=== PATIENT | female | born 1995 | race American Indian/Alaskan Native ===

== ENCOUNTER 2022-09-02 20:46 | Emergency (ER) | payer OTHER, SELFPAY ==
[2022-09-02] VITALS (7 sets, daily range): BP systolic 109–116; BP diastolic 56–68; PULSE 86–99; RESP 18–20; TEMP 36.3; O2SAT 96–97; BMI 28.3
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
[2022-09-02 21:16] LABS: Pregnancy Test Serum,Qual Negative (Negative)
[2022-09-02] MEDS: KETOROLAC 30 MG/ML VIAL 15 MG IV (21:20)
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
== END 2022-09-02 22:49 | disposition home or self-care (01) ==
PROVIDERS: Emergency Provider Emergency Medicine; PCP Physician Assistant
DX: S16.1XXA Strain of muscle, fascia and tendon at neck level, initial encounter (principal); V89.2XXA Person injured in unspecified motor-vehicle accident, traffic, initial encounter
CPT/HCPCS: 70450; 71045; 72125; 72170; 84703; 96374; 99284; J1885

== ENCOUNTER → 2023-03-27 12:23 | Outpatient (CLI) | payer OTHER, SELFPAY ==
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
== END ==
PROVIDERS: PCP Physician Assistant; Referring Provider Obstetrics & Gynecology; Visit Provider Obstetrics & Gynecology
DX: O26.891 Other specified pregnancy related conditions, first trimester (principal); R10.9 Unspecified abdominal pain; R11.0 Nausea; Z3A.01 Less than 8 weeks gestation of pregnancy; Z87.59 Personal history of other complications of pregnancy, childbirth and the puerperium
CPT/HCPCS: 76801; 76817

== ENCOUNTER 2023-03-28 13:38 | Emergency (ER) | payer OTHER, SELFPAY ==
[2023-03-28 13:40] VITALS: BP 104/65; PULSE 76; RESP 15; TEMP 36.6; O2SAT 100; BMI 27.4
[2023-03-28] MEDS: ONDANSETRON 4 MG ODT SL (13:50)
--- NOTE | 2023-03-28 14:38 | ED_ITS ---
HPI - Nausea/Vomiting/Diarrhea <THANH Head - Last Filed: 03/28/23 16:30> General Chief complaint: Nausea/Vomiting/Diarrhea Stated complaint: SENT BY [facility]OMITING Time Seen by Provider: 03/28/23 14:28 Source: patient Mode of arrival: Ambulatory History of Present Illness HPI Narrative: This is a 27-year-old female returns to the emergency department after being seen yesterday with pelvic ultrasound showing 7 week 6 day gestation . She returns for nausea and vomiting and states she has not been able to keep anything down. She states that she has generalized abdominal pain. States that she is a history of ectopic last year, and history of miscarriage in her 1st requiring D&C. She states that she still feels poorly has been since yesterday. States the ultrasound she had her shows that the baby's healthy and normal. She denies history of appendectomy or cholecystectomy. States that she has epigastric pain and primarily generalized lower abdominal discomfort. Endorses having vaginal discharge. Denies any bleeding or pelvic cramping. Patient has bilateral ovaries appear normal, heart rate was 162 beats per minute. Patient reports that she just moved here from [place] and does not have OBGYN lined up, states that she came here to the [facility] to hopefully get this lined up. Related Data Previous Rx's Medication Instructions Recorded ondansetron 4 mg disintegrating 4 mg PO Q8H PRN nausea and 03/28/23 tablet vomiting #14 tabs promethazine 12.5 mg tablet 12.5 mg PO TID PRN nausea/vomiting 03/28/23 #14 tabs Allergies Allergy/AdvReac Type Severity Reaction Status Date / Time No Known Drug Allergies Allergy Verified 03/28/23 13:40 Review of Systems <THANH Head - Last Filed: 03/28/23 16:30> Review of Systems ROS Unobtainable: All systems reviewed & are unremarkable except as noted in HPI and below Patient History <THANH Head - Last Filed: 03/28/23 16:30> Social History Smoking Status: Never smoker Smoking Status: Never smoker alcohol intake frequency: holidays/special occasions only Substance Use Type: does not use Exam <THANH Head - Last Filed: 03/28/23 16:30> Narrative Exam Narrative: Reviewed vitals signs and nursing notes. General: Pleasant, sitting upright, appears to be feeling poorly, in no acute distress, well groomed, afebrile HEENT: symmetrical facial expressions, moist mucous membranes, neck is supple CV: regular rate and rhythm, warm extremities Respiratory: normal work of breathing, without tachypnea or hypoxia. GI: abdomen soft, nondistended, without CVA tenderness bilaterally, tenderness to the lower quadrants over the left and right ovary and her bladder MSK: moves all extremities, no weakness, normal tone, ambulatory without deficit Skin: brisk capillary refill, without rash or wound Neuro: clear speech and normal cognition, A&O x3, GCS 15, no focal motor or sensation deficits Initial Vital Signs Initial Vital Signs: Vital Signs Temperature 97.9 F 03/28/23 13:40 Pulse Rate 76 03/28/23 13:40 Respiratory Rate 15 03/28/23 13:40 Blood Pressure 104/65 03/28/23 13:40 Pulse Oximetry 100 03/28/23 13:40 Oxygen Delivery Method Room Air 03/28/23 13:40 <Mehdi Hodge MD - Last Filed: 04/02/23 08:43> Initial Vital Signs Initial Vital Signs: Vital Signs Temperature 97.9 F 03/28/23 13:40 Pulse Rate 76 03/28/23 13:40 Respiratory Rate 15 03/28/23 13:40 Blood Pressure 104/65 03/28/23 13:40 Pulse Oximetry 100 03/28/23 13:40 Oxygen Delivery Method Room Air 03/28/23 13:40 Course <THANH Head - Last Filed: 03/28/23 16:30> Orders Ordered: Discontinued Medications Diphenhydramine HCl (Diphenhydramine 50 Mg/Ml Vial) 25 mg IV NOW ONE Stop: 03/28/23 15:45 Last Admin: 03/28/23 16:34 Dose: Not Given Documented By: LORI Sodium Chloride (Normal Saline 0.9%) 1,000 mls @ 1,000 mls/hr IV BOLUS ONE Stop: 03/28/23 15:38 Last Infusion: 03/28/23 16:00 Dose: 0 mls/hr Documented By: Admin: 03/28/23 15:01 Dose: 1,000 mls/hr Documented By: ADILENE Ondansetron HCl (Ondansetron 4 Mg Odt) 4 mg SL NOW PRN PRN Reason: Nausea And Vomiting Last Admin: 03/28/23 13:50 Dose: 4 mg Documented By: OPAL Ondansetron HCl (Ondansetron 4 Mg/2 Ml Inj) 4 mg IV NOW ONE Stop: 03/28/23 14:40 Last Admin: 03/28/23 15:01 Dose: 4 mg Documented By: ADILENE Promethazine HCl (Promethazine 25 Mg Tablet) 25 mg PO NOW ONE Stop: 03/28/23 16:16 Last Admin: 03/28/23 16:25 Dose: 25 mg Documented By: ADILENE Pyridoxine HCl (Pyridoxine 100 Mg/Ml Vial) 100 mg IV NOW ONE Stop: 03/28/23 15:45 Last Admin: 03/28/23 16:34 Dose: Not Given Documented By: LORI Vital Signs Vital signs: Vital Signs - 8 hr 03/28/23 13:40 Temperature 97.9 F Pulse Rate 76 Respiratory Rate 15 Blood Pressure 104/65 Pulse Oximetry 100 Oxygen Delivery Method Room Air <Mehdi Hodge MD - Last Filed: 04/02/23 08:43> Orders Ordered: Discontinued Medications Diphenhydramine HCl (Diphenhydramine 50 Mg/Ml Vial) 25 mg IV NOW ONE Stop: 03/28/23 15:45 Last Admin: 03/28/23 16:34 Dose: Not Given Documented By: LORI Sodium Chloride (Normal Saline 0.9%) 1,000 mls @ 1,000 mls/hr IV BOLUS ONE Stop: 03/28/23 15:38 Last Infusion: 03/28/23 16:00 Dose: 0 mls/hr Documented By: Admin: 03/28/23 15:01 Dose: 1,000 mls/hr Documented By: ADILENE Ondansetron HCl (Ondansetron 4 Mg Odt) 4 mg SL NOW PRN PRN Reason: Nausea And Vomiting Last Admin: 03/28/23 13:50 Dose: 4 mg Documented By: OPAL Ondansetron HCl (Ondansetron 4 Mg/2 Ml Inj) 4 mg IV NOW ONE Stop: 03/28/23 14:40 Last Admin: 03/28/23 15:01 Dose: 4 mg Documented By: SPF Promethazine HCl (Promethazine 25 Mg Tablet) 25 mg PO NOW ONE Stop: 03/28/23 16:16 Last Admin: 03/28/23 16:25 Dose: 25 mg Documented By: ADILENE Pyridoxine HCl (Pyridoxine 100 Mg/Ml Vial) 100 mg IV NOW ONE Stop: 03/28/23 15:45 Last Admin: 03/28/23 16:34 Dose: Not Given Documented By: LORI Vital Signs Vital signs: Vital Signs - 8 hr 03/28/23 13:40 Temperature 97.9 F Pulse Rate 76 Respiratory Rate 15 Blood Pressure 104/65 Pulse Oximetry 100 Oxygen Delivery Method Room Air MDM - Nausea/Vomiting/Diarrhea <THANH Head - Last Filed: 03/28/23 16:30> Lab Data 03/28/23 14:56 03/28/23 14:56 Labs: Lab Results 03/28/23 03/28/23 03/28/23 Range/Units 14:56 14:56 14:56 WBC 7.7 (4.5-11.0) X10^3/uL RBC 4.06 (4.0-5.2) X10^6/uL Hgb 13.0 (12.0-16.0) g/dL Hct 37.1 (36-46) % MCV 91.5 (80-100) fL MCH 32.1 (26-34) PG MCHC 35.1 (30-36) % RDW 13.5 (11.6-14.8) % Plt Count 288 (150-400) X10^3/uL Neut % (Auto) 77.8 H (50-75) % Lymph % (Auto) 14.6 L (25-40) % Lamb % (Auto) 6.2 (3-14) % Eos % (Auto) 0.8 L (2-4) % Baso % (Auto) 0.6 (0-2) % Neut # (Auto) 6000 (7064-5088) /uL Lymph # (Auto) 1100 (5001-5260) /uL Lamb # (Auto) 500 (0-900) /uL Eos # (Auto) 100 (0-450) /uL Baso # (Auto) 0 (0-100) /uL Sodium 135 L (137-145) mmol/L Potassium 3.6 (3.4-5.1) mmol/L Chloride 103 (98-107) mmol/L Carbon Dioxide 26 (22-32) mmol/L BUN 6 L (7-17) mg/dL Creatinine 0.53 (0.52-1.04) mg/dL Estimated GFR > 60 (>60) mL/min BUN/Creatinine Ratio 11.3 (6-22) Glucose 84 (70-100) mg/dL Calcium 9.2 (8.4-10.2) mg/dL Magnesium 1.8 (1.6-2.3) mg/dL Total Bilirubin 0.5 (0.2-1.3) mg/dL AST 25 (14-36) IU/L ALT 27 (<35) IU/L Alkaline Phosphatase 58 (38-126) U/L Total Protein 7.9 (6.3-8.2) g/dL Albumin 4.4 (3.5-5.0) g/dL Globulin 3.5 (1.7-4.1) g/dL Albumin/Globulin Ratio 1.3 (1.0-2.8) Lipase 57 (23-300) U/L HCG, Quant [id number] mIU/mL Urine Dip Bedside Urine Glucose Negative Bedside Urine Bilirubin - Negative Bedside Urine Ketone +/- 5 Urine Specific Deaver 1.015 Bedside Urine Occult Blood - Negative Bedside Urine pH 8.0 Bedside Urine Protein - Negative Bedside Urine Urobilinogen - Negative Bedside Urine Nitrite - Negative Bedside Urine Leukocytes - Negative Esterase MDM Narrative Medical decision making narrative: Chief Complaint: Nausea vomiting Primary historian: Multiple etiologies for patient's complaint considered including, but not limited to: Acute viral illness/gastroenteritis, hyperemesis affecting , dehydration, electrolyte abnormality, bacterial vaginitis, cholecystitis, cholelithiasis, gastritis, appendicitis, I have independently reviewed the patient's vital signs and nursing notes as well as prior records if available. My interpretation of imaging: OB Ultrasound from yesterday showed a healthy viable 7 week 4 day intrauterine gestation. My interpretation of lab studies: Urine dip with a trace of ketones, wet mount is negative for WBCs, clue cells, or Trichomonas., no leukocytosis or anemia, no significant electrolyte abnormalities After patient's IV Zofran she reports still feeling nauseated. Will treat with vitamin B6 and diphenhydramine. Labs are pending Patient's lab work overall is unremarkable, no elevated liver enzymes, pharmacy called and said that the hospital does not have vitamin B6. Decided to hold Benadryl and discuss risks and benefits of treating with promethazine, this was ordered for the patient as she states she is had this in the past for her previous episodes of nausea and vomiting during . Patient is instructed to follow-up with OBGYN since she does not have one, she was referred to Dr. Yao who is on-call today for OBGYN and understands to call make an appointment for follow-up. I have given her a prescription of Zofran and for promethazine to use as needed if the Zofran does not help. She understands to hydrate after using this medication. She is not had a fever, tachycardia, flank pain, abnormal UA or other signs of infection today. Course of care: Patient was given promethazine, she will follow-up with Dr. Yao and was given strict return precautions. Social considerations that may affect disposition: none Questions are addressed and there is agreement with the plan and for follow-up. I consulted with the ED attending physician Dr. Hodge as needed for higher level of care considerations and they were available for discussion and recommendations regarding plan of care and diagnostic testing. Patient is appropriate for outpatient management. <Mehdi Hodge MD - Last Filed: 04/02/23 08:43> Lab Data Labs: Lab Results 03/28/23 03/28/23 03/28/23 Range/Units 14:56 14:56 14:56 WBC 7.7 (4.5-11.0) X10^3/uL RBC 4.06 (4.0-5.2) X10^6/uL Hgb 13.0 (12.0-16.0) g/dL Hct 37.1 (36-46) % MCV 91.5 (80-100) fL MCH 32.1 (26-34) PG MCHC 35.1 (30-36) % RDW 13.5 (11.6-14.8) % Plt Count 288 (150-400) X10^3/uL Neut % (Auto) 77.8 H (50-75) % Lymph % (Auto) 14.6 L (25-40) % Lamb % (Auto) 6.2 (3-14) % Eos % (Auto) 0.8 L (2-4) % Baso % (Auto) 0.6 (0-2) % Neut # (Auto) 6000 (5133-1449) /uL Lymph # (Auto) 1100 (8798-9692) /uL Lamb # (Auto) 500 (0-900) /uL Eos # (Auto) 100 (0-450) /uL Baso # (Auto) 0 (0-100) /uL Sodium 135 L (137-145) mmol/L Potassium 3.6 (3.4-5.1) mmol/L Chloride 103 (98-107) mmol/L Carbon Dioxide 26 (22-32) mmol/L BUN 6 L (7-17) mg/dL Creatinine 0.53 (0.52-1.04) mg/dL Estimated GFR > 60 (>60) mL/min BUN/Creatinine Ratio 11.3 (6-22) Glucose 84 (70-100) mg/dL Calcium 9.2 (8.4-10.2) mg/dL Magnesium 1.8 (1.6-2.3) mg/dL Total Bilirubin 0.5 (0.2-1.3) mg/dL AST 25 (14-36) IU/L ALT 27 (<35) IU/L Alkaline Phosphatase 58 (38-126) U/L Total Protein 7.9 (6.3-8.2) g/dL Albumin 4.4 (3.5-5.0) g/dL Globulin 3.5 (1.7-4.1) g/dL Albumin/Globulin Ratio 1.3 (1.0-2.8) Lipase 57 (23-300) U/L HCG, Quant [id number] mIU/mL Urine Dip Bedside Urine Glucose Negative Bedside Urine Bilirubin - Negative Bedside Urine Ketone +/- 5 Urine Specific Deaver 1.015 Bedside Urine Occult Blood - Negative Bedside Urine pH 8.0 Bedside Urine Protein - Negative Bedside Urine Urobilinogen - Negative Bedside Urine Nitrite - Negative Bedside Urine Leukocytes - Negative Esterase Discharge Plan Departure Patient Disposition: Home Clinical Impression: Hyperemesis arising during Instructions: Hyperemesis Gravidarum Activity Restrictions/Additional Instructions: *You have been diagnosed with hyperemesis/nausea vomiting related to . Please establish care with Dr. Yao, an OBGYN here at this hospital by calling and scheduling yourself an appointment. Let them know that you were seen in the emergency department. This should get better please use Zofran 4 mg every 8 hours as needed for nausea and vomiting, try and hydrate after that was clear fluids. Use the promethazine if you have ongoing nausea after using Zofran. Come back to the emergency department if you develop fever chills. *What to do: *Please continue to take your regular medications as directed. [ x] New medication prescriptions sent to your pharmacy: [[facility]] [ ] New medication written as a paper prescription [ ] No new medications given *Please call and schedule follow up with your primary care provider in 2-3 days, at least for an update. Let them know you were seen in the Emergency Department for the above problem. We will electronically transmit a record of today's note if your PCP or specialist is in our system. *If you do not have a primary care provider please contact [phone] to establish care with one of the [facility] primary care providers. *Return to the Emergency Department for worsening symptoms, inability to keep liquids down, fever greater than 101F, chills, or other concerning symptom. Prescriptions: New ondansetron 4 mg tablet,disintegrating 4 mg PO Q8H PRN (Reason: nausea and vomiting) Qty: 14 0RF promethazine 12.5 mg tablet 12.5 mg PO TID PRN (Reason: nausea/vomiting) Qty: 14 0RF Rx Instructions: Take up to 3 doses in 24 hours as needed if 2 doses of Zofran a hours apart has not been helpful. Referrals: Ana Yao MD [Physician] - Karen Ozuna PA-C [Primary Care Provider] - Stand Alone Forms: Patient Portal/API <Mehdi Hodge MD - Last Filed: 04/02/23 08:43> Cosign ED Attending Cosignature Attestation: I was immediately available in the department for consultation. ?This documentation has been reviewed and I agree with assessment and plan. Supervised by Mehdi Hodge MD
[2023-03-28] MEDS: SODIUM CHLORIDE 0.9% 1,000 ML 1000 ML IV (15:01)
[2023-03-28] MEDS: ONDANSETRON 4 MG/2 ML INJ IV (15:01)
[2023-03-28 15:05] LABS: Add Manual Diff / Slide Review NO; Basophils Absolute Auto 0 /uL (0-100); Basophils Percent Auto 0.6 % (0-2); Eosinophils Absolute Auto 100 /uL (0-450); Eosinophils Percent Auto 0.8 % (2-4); Hematocrit 37.1 % (36-46); Lymphocytes Absolute Auto 1100 /uL (1100-4500); Lymphocytes Percent Auto 14.6 % (25-40); Mean Corpuscular HGB Conc 35.1 % (30-36); Mean Corpuscular Hemoglobin 32.1 PG (26-34); Mean Corpuscular Volume 91.5 fL (80-100); Monocytes Absolute Auto 500 /uL (0-900); Monocytes Percent Auto 6.2 % (3-14); Neutrophils Absolute Auto 6000 /uL (1500-7000); Neutrophils Percent Auto 77.8 % (50-75); Platelet Count 288 X10^3/uL (150-400); Red Blood Cell Count 4.06 X10^6/uL (4.0-5.2); Red Cell Distribution Width 13.5 % (11.6-14.8); White Blood Cell Count 7.7 X10^3/uL (4.5-11.0)
[2023-03-28 15:18] LABS: Alanine Aminotransferase 27 IU/L (<35); Albumin 4.4 g/dL (3.5-5.0); Albumin Globulin Ratio 1.3 (1.0-2.8); Alkaline Phosphatase 58 U/L (38-126); Aspartate Aminotransferase 25 IU/L (14-36); BUN Creatinine Ratio 11.3 (6-22); Bilirubin Total 0.5 mg/dL (0.2-1.3); Blood Urea Nitrogen 6 mg/dL (7-17); Calcium 9.2 mg/dL (8.4-10.2); Carbon Dioxide 26 mmol/L (22-32); Chloride 103 mmol/L (98-107); Estimated Glomerular Filt Rate > 60 mL/min (>60); Globulin 3.5 g/dL (1.7-4.1); Glucose 84 mg/dL (70-100); HEMOLYSIS < 15 (0-50); Lipase 57 U/L (23-300); Potassium 3.6 mmol/L (3.4-5.1); Sodium 135 mmol/L (137-145); Total Protein 7.9 g/dL (6.3-8.2)
[2023-03-28 15:19] LABS: Magnesium 1.8 mg/dL (1.6-2.3)
[2023-03-28 15:59] LABS: HCG Quantitative /Beta subunit 221670 mIU/mL
[2023-03-28] MEDS: PROMETHAZINE 25 MG TABLET PO (16:25)
[2023-03-28 16:35] VITALS: BP 100/64; BP 111/63; BP 99/58; PULSE 67; PULSE 74; PULSE 96
== END 2023-03-28 16:46 | disposition home or self-care (01) ==
PROVIDERS: Emergency Provider Nurse Practitioner Critical Care Medicine; PCP Physician Assistant
DX: O21.0 Mild hyperemesis gravidarum (principal); Z3A.01 Less than 8 weeks gestation of pregnancy
CPT/HCPCS: 36415; 80053; 81003; 83690; 83735; 84702; 85025; 87210; 96374; 99284; J2405

== ENCOUNTER 2023-04-03 14:09 | Emergency (ER) | payer OTHER, SELFPAY ==
[2023-04-03 14:14] VITALS: BP 105/59; PULSE 80; RESP 18; TEMP 36.9; O2SAT 99; BMI 26.6
[2023-04-03] MEDS: ONDANSETRON 4 MG/2 ML INJ IV (14:39)
[2023-04-03] MEDS: METOCLOPRAMIDE 10 MG/2 ML INJ IV (14:39)
[2023-04-03] MEDS: SODIUM CHLORIDE 0.9% 1,000 ML 1000 ML IV ×2 (14:40→15:24)
[2023-04-03 14:57] LABS: Add Manual Diff / Slide Review NO; Basophils Absolute Auto 100 /uL (0-100); Basophils Percent Auto 0.7 % (0-2); Eosinophils Absolute Auto 0 /uL (0-450); Eosinophils Percent Auto 0.3 % (2-4); Hematocrit 36.8 % (36-46); Hemoglobin 12.9 g/dL (12.0-16.0); Lymphocytes Absolute Auto 1500 /uL (1100-4500); Lymphocytes Percent Auto 17.1 % (25-40); Mean Corpuscular HGB Conc 35.2 % (30-36); Mean Corpuscular Hemoglobin 32.5 PG (26-34); Mean Corpuscular Volume 92.3 fL (80-100); Monocytes Absolute Auto 500 /uL (0-900); Monocytes Percent Auto 5.4 % (3-14); Neutrophils Absolute Auto 6800 /uL (1500-7000); Neutrophils Percent Auto 76.5 % (50-75); Platelet Count 287 X10^3/uL (150-400); Red Blood Cell Count 3.98 X10^6/uL (4.0-5.2); White Blood Cell Count 8.9 X10^3/uL (4.5-11.0)
[2023-04-03 15:06] LABS: Alanine Aminotransferase 28 IU/L (<35); Albumin 4.4 g/dL (3.5-5.0); Albumin Globulin Ratio 1.2 (1.0-2.8); Alkaline Phosphatase 56 U/L (38-126); Aspartate Aminotransferase 25 IU/L (14-36); BUN Creatinine Ratio 15.7 (6-22); Bilirubin Total 0.5 mg/dL (0.2-1.3); Blood Urea Nitrogen 8 mg/dL (7-17); Carbon Dioxide 22 mmol/L (22-32); Chloride 105 mmol/L (98-107); Estimated Glomerular Filt Rate > 60 mL/min (>60); Globulin 3.6 g/dL (1.7-4.1); Glucose 90 mg/dL (70-100); HEMOLYSIS < 15 (0-50); Lipase 61 U/L (23-300); Potassium 3.7 mmol/L (3.4-5.1); Sodium 138 mmol/L (137-145)
--- NOTE | 2023-04-03 15:19 | ED_ITS ---
HPI - Nausea/Vomiting/Diarrhea <Kali Agarwal PA-C - Last Filed: 04/03/23 16:51> General Chief complaint: Nausea/Vomiting/Diarrhea Stated complaint: needs an IV [address] Time Seen by Provider: 04/03/23 14:18 Source: patient and family Mode of arrival: Ambulatory History of Present Illness HPI Narrative: 27-year-old female who is 9 weeks presents to the ED with 4 days of intractable vomiting. Patient was seen in the ED on 03/28/2023 for the same complaint. Patient was treated with IV fluids, promethazine, Zofran with good relief. Patient was discharged home with Zofran and promethazine. Patient states that since then she has been taking the medications, however over the last 4 days the medications did not give her any relief. Patient called Dr. Yao's office this morning, they directed her to the ED for hydration and emesis control. Patient denies fever, chills, chest pain, shortness of breath, abdominal pain, pelvic cramping, vaginal bleeding, lightheadedness, dizziness, syncope. Related Data Previous Rx's Medication Instructions Recorded ondansetron 4 mg disintegrating 4 mg PO Q8H PRN nausea and 03/28/23 tablet vomiting #14 tabs promethazine 12.5 mg tablet 12.5 mg PO TID PRN nausea/vomiting 03/28/23 #14 tabs ondansetron 4 mg disintegrating 4 mg PO Q8H PRN nausea and 04/03/23 tablet vomiting #30 tabs promethazine 25 mg tablet 25 mg PO Q6H PRN nausea and 04/03/23 vomiting #30 tabs Allergies Allergy/AdvReac Type Severity Reaction Status Date / Time No Known Drug Allergies Allergy Verified 04/03/23 14:17 Review of Systems <Kali Agarwal PA-C - Last Filed: 04/03/23 16:51> Review of Systems ROS Unobtainable: All systems reviewed & are unremarkable except as noted in HPI and below Constitutional Constitutional: Denies chills, Denies fatigue, Denies fever(s), Denies frequent falls, Denies lethargy and Denies weakness Eyes Eyes: Denies change in vision, Denies eye discharge, Denies irritation and Denies loss of vision ENT Ears, Nose, Mouth, and Throat: Denies change in voice, Denies dizziness, Denies neck pain, Denies sore throat and Denies throat swelling Cardiovascular Cardiovascular: Denies chest pain, Denies irregular heart rhythm, Denies lightheadedness, Denies palpitations, Denies dyspnea, Denies dyspnea on exertion and Denies orthopnea Respiratory Respiratory: Denies cough, Denies dyspnea, Denies dyspnea on exertion and Denies wheezing Gastrointestinal Gastrointestinal: Denies abdominal pain, Denies change in bowel habits, Denies diarrhea, Reports nausea and Reports vomiting Genitourinary Genitourinary: Denies hematuria, Denies flank pain, Denies urinary incontinence and Denies urinary urgency Musculoskeletal Musculoskeletal: Denies back pain, Denies muscle weakness, Denies neck pain, Denies numbness and Denies tingling Integumentary/Breasts Skin/Breast: Denies pruritus, Denies erythema, Denies rash and Denies wounds Neurologic Neurologic: Denies behavioral changes, Denies confusion, Denies dizziness, Denies frequent falls, Denies loss of vision, Denies numbness, Denies tingling and Denies weakness Psychiatric Psychiatric: Denies anxiety, Denies behavioral changes, Denies confusion, Denies depression, Denies homicidal ideation and Denies suicidal ideation Endocrine Endocrine: Denies fatigue, Denies flushing and Denies palpitations Hematologic/Lymphatic Hematologic/Lymphatic: Denies easy bruising Allergic/Immunologic Allergic/Immunologic: Denies urticaria, Denies throat swelling and Denies wheezing Patient History <Kali Agarwal PA-C - Last Filed: 04/03/23 16:51> Social History Smoking Status: Never smoker Smoking Status: Never smoker alcohol intake frequency: holidays/special occasions only Substance Use Type: does not use Exam <Kali Agarwal PA-C - Last Filed: 04/03/23 16:51> Narrative Exam Narrative: Const General:?cooperative, healthy appearing and comfortable [facility] Head:?normal to inspection Ears:?hearing grossly normal bilaterally Nose:?external nose normal Face and sinus:?normal facial exam and sinuses nontender Mouth:?oral mucosae normal Throat:?posterior oropharynx normal Eyes General:?appearance normal, both eyes and all related structures Neck Neck:?normal visual inspection and no lymphadenopathy noted Resp Effort & Inspection:?normal respiratory effort Auscultation:?clear to auscultation bilaterally Cardio Rate:?regular rate Rhythm:?regular rhythm GI Abdomen is soft, nontender to palpation. Neuro General:?patient alert, patient awake and patient oriented x3 Initial Vital Signs Initial Vital Signs: Vital Signs Temperature 98.4 F 04/03/23 14:14 Pulse Rate 80 04/03/23 14:14 Respiratory Rate 18 04/03/23 14:14 Blood Pressure 105/59 L 04/03/23 14:14 Pulse Oximetry 99 04/03/23 14:14 Oxygen Delivery Method Room Air 04/03/23 14:14 <Mehdi Hodge MD - Last Filed: 04/18/23 20:06> Initial Vital Signs Initial Vital Signs: Vital Signs Temperature 98.4 F 04/03/23 14:14 Pulse Rate 80 04/03/23 14:14 Respiratory Rate 18 04/03/23 14:14 Blood Pressure 105/59 L 04/03/23 14:14 Pulse Oximetry 99 04/03/23 14:14 Oxygen Delivery Method Room Air 04/03/23 14:14 Course <Kali Agarwal PA-C - Last Filed: 04/03/23 16:51> Orders Ordered: Discontinued Medications Sodium Chloride (Normal Saline 0.9%) 1,000 mls @ 1,000 mls/hr IV BOLUS ONE Stop: 04/03/23 15:24 Last Infusion: 04/03/23 15:22 Dose: 0 mls/hr Documented By: Admin: 04/03/23 14:40 Dose: 1,000 mls/hr Documented By: AMU Sodium Chloride (Normal Saline 0.9%) 1,000 mls @ 1,000 mls/hr IV BOLUS ONE Stop: 04/03/23 16:21 Last Infusion: 04/03/23 15:56 Dose: 0 mls/hr Documented By: Admin: 04/03/23 15:24 Dose: 1,000 mls/hr Documented By: AMU Metoclopramide HCl (Metoclopramide 10 Mg/2 Ml Inj) 10 mg IV NOW ONE Stop: 04/03/23 14:26 Last Admin: 04/03/23 14:39 Dose: 10 mg Documented By: AMU Ondansetron HCl (Ondansetron 4 Mg/2 Ml Inj) 4 mg IV NOW ONE Stop: 04/03/23 14:26 Last Admin: 04/03/23 14:39 Dose: 4 mg Documented By: AMU Vital Signs Vital signs: Vital Signs - 8 hr 04/03/23 14:14 04/03/23 16:03 Temperature 98.4 F 98.5 F Pulse Rate 80 86 Respiratory Rate 18 16 Blood Pressure 105/59 L 105/57 L Pulse Oximetry 99 100 Oxygen Delivery Method Room Air Room Air <Mehdi Hodge MD - Last Filed: 04/18/23 20:06> Orders Ordered: Discontinued Medications Sodium Chloride (Normal Saline 0.9%) 1,000 mls @ 1,000 mls/hr IV BOLUS ONE Stop: 04/03/23 15:24 Last Infusion: 04/03/23 15:22 Dose: 0 mls/hr Documented By: Admin: 04/03/23 14:40 Dose: 1,000 mls/hr Documented By: AMU Sodium Chloride (Normal Saline 0.9%) 1,000 mls @ 1,000 mls/hr IV BOLUS ONE Stop: 04/03/23 16:21 Last Infusion: 04/03/23 15:56 Dose: 0 mls/hr Documented By: Admin: 04/03/23 15:24 Dose: 1,000 mls/hr Documented By: AMU Metoclopramide HCl (Metoclopramide 10 Mg/2 Ml Inj) 10 mg IV NOW ONE Stop: 04/03/23 14:26 Last Admin: 04/03/23 14:39 Dose: 10 mg Documented By: AMU Ondansetron HCl (Ondansetron 4 Mg/2 Ml Inj) 4 mg IV NOW ONE Stop: 04/03/23 14:26 Last Admin: 04/03/23 14:39 Dose: 4 mg Documented By: AMU Vital Signs Vital signs: Vital Signs - 8 hr 04/03/23 14:14 04/03/23 16:03 Temperature 98.4 F 98.5 F Pulse Rate 80 86 Respiratory Rate 18 16 Blood Pressure 105/59 L 105/57 L Pulse Oximetry 99 100 Oxygen Delivery Method Room Air Room Air MDM - Nausea/Vomiting/Diarrhea <Kali Agarwal PA-C - Last Filed: 04/03/23 16:51> Lab Data 04/03/23 14:45 04/03/23 14:45 Labs: Lab Results 04/03/23 04/03/23 Range/Units 14:45 14:45 WBC 8.9 (4.5-11.0) X10^3/uL RBC 3.98 L (4.0-5.2) X10^6/uL Hgb 12.9 (12.0-16.0) g/dL Hct 36.8 (36-46) % MCV 92.3 (80-100) fL MCH 32.5 (26-34) PG MCHC 35.2 (30-36) % RDW 13.0 (11.6-14.8) % Plt Count 287 (150-400) X10^3/uL Neut % (Auto) 76.5 H (50-75) % Lymph % (Auto) 17.1 L (25-40) % Fisher % (Auto) 5.4 (3-14) % Eos % (Auto) 0.3 L (2-4) % Baso % (Auto) 0.7 (0-2) % Neut # (Auto) 6800 (0008-4157) /uL Lymph # (Auto) 1500 (5317-5904) /uL Fisher # (Auto) 500 (0-900) /uL Eos # (Auto) 0 (0-450) /uL Baso # (Auto) 100 (0-100) /uL Sodium 138 (137-145) mmol/L Potassium 3.7 (3.4-5.1) mmol/L Chloride 105 (98-107) mmol/L Carbon Dioxide 22 (22-32) mmol/L BUN 8 (7-17) mg/dL Creatinine 0.51 L (0.52-1.04) mg/dL Estimated GFR > 60 (>60) mL/min BUN/Creatinine Ratio 15.7 (6-22) Glucose 90 (70-100) mg/dL Calcium 9.0 (8.4-10.2) mg/dL Total Bilirubin 0.5 (0.2-1.3) mg/dL AST 25 (14-36) IU/L ALT 28 (<35) IU/L Alkaline Phosphatase 56 (38-126) U/L Total Protein 8.0 (6.3-8.2) g/dL Albumin 4.4 (3.5-5.0) g/dL Globulin 3.6 (1.7-4.1) g/dL Albumin/Globulin Ratio 1.2 (1.0-2.8) Lipase 61 (23-300) U/L MDM Narrative Medical decision making narrative: 27-year-old female who is 9 weeks presents to the ED with 4 days of intractable vomiting. Concern for dehydration versus electrolyte derangements versus hyperemesis gravidarum. Will obtain labs, give IV fluids, promethazine, Zofran. Will reassess. Patient's symptoms improved after 2 L of IV fluids, Zofran, promethazine. Discharge patient home with prescription for promethazine and Zofran as needed. Also recommend vitamin B6 and doxylamine. Recommend continued hydration. Patient has a appointment with Dr. Yao in early April. ED return precautions were discussed with patient. Patient verbalized understanding. Medical records reviewed: Yes <Mehdi oHdge MD - Last Filed: 04/18/23 20:06> Lab Data Labs: Lab Results 04/03/23 04/03/23 Range/Units 14:45 14:45 WBC 8.9 (4.5-11.0) X10^3/uL RBC 3.98 L (4.0-5.2) X10^6/uL Hgb 12.9 (12.0-16.0) g/dL Hct 36.8 (36-46) % MCV 92.3 (80-100) fL MCH 32.5 (26-34) PG MCHC 35.2 (30-36) % RDW 13.0 (11.6-14.8) % Plt Count 287 (150-400) X10^3/uL Neut % (Auto) 76.5 H (50-75) % Lymph % (Auto) 17.1 L (25-40) % Fisher % (Auto) 5.4 (3-14) % Eos % (Auto) 0.3 L (2-4) % Baso % (Auto) 0.7 (0-2) % Neut # (Auto) 6800 (7797-3191) /uL Lymph # (Auto) 1500 (5389-3032) /uL Fisher # (Auto) 500 (0-900) /uL Eos # (Auto) 0 (0-450) /uL Baso # (Auto) 100 (0-100) /uL Sodium 138 (137-145) mmol/L Potassium 3.7 (3.4-5.1) mmol/L Chloride 105 (98-107) mmol/L Carbon Dioxide 22 (22-32) mmol/L BUN 8 (7-17) mg/dL Creatinine 0.51 L (0.52-1.04) mg/dL Estimated GFR > 60 (>60) mL/min BUN/Creatinine Ratio 15.7 (6-22) Glucose 90 (70-100) mg/dL Calcium 9.0 (8.4-10.2) mg/dL Total Bilirubin 0.5 (0.2-1.3) mg/dL AST 25 (14-36) IU/L ALT 28 (<35) IU/L Alkaline Phosphatase 56 (38-126) U/L Total Protein 8.0 (6.3-8.2) g/dL Albumin 4.4 (3.5-5.0) g/dL Globulin 3.6 (1.7-4.1) g/dL Albumin/Globulin Ratio 1.2 (1.0-2.8) Lipase 61 (23-300) U/L Discharge Plan Departure Patient Disposition: Home Clinical Impression: Hyperemesis arising during Instructions: DI for Hyperemesis Gravidarum Activity Restrictions/Additional Instructions: You were evaluated in the ED today for nausea and vomiting from . Your symptoms improved with promethazine and Zofran and IV fluids. You were being sent home with a prescription for promethazine and Zofran that you may continue to take as needed. Please continue to stay well hydrated. You may also take vitamin B6 25 mg every 6-8 hours, and doxylamine 12.5 mg every 6-8 hours. Both of these medications are available [id number]. Please follow-up with Dr. Yao as soon as possible. Return to the ED if your symptoms worsen and you are persistently vomiting again. Prescriptions: New promethazine 25 mg tablet 25 mg PO Q6H PRN (Reason: nausea and vomiting) Qty: 30 0RF ondansetron 4 mg tablet,disintegrating 4 mg PO Q8H PRN (Reason: nausea and vomiting) Qty: 30 0RF No Action ondansetron 4 mg tablet,disintegrating 4 mg PO Q8H PRN (Reason: nausea and vomiting) Qty: 14 0RF promethazine 12.5 mg tablet 12.5 mg PO TID PRN (Reason: nausea/vomiting) Qty: 14 0RF Rx Instructions: Take up to 3 doses in 24 hours as needed if 2 doses of Zofran a hours apart has not been helpful. Referrals: Karen Ozuna PA-C [Primary Care Provider] - Stand Alone Forms: Patient Portal/API, Work Release Note <Mehdi Hodge MD - Last Filed: 04/18/23 20:06> Cosign ED Attending Cosignature Attestation: I was immediately available in the department for consultation. This documentation has been reviewed and I agree with assessment and plan. Supervised by Mehdi Hodge MD
[2023-04-03 16:03] VITALS: BP 105/57; PULSE 86; RESP 16; TEMP 36.9; O2SAT 100
== END 2023-04-03 16:20 | disposition home or self-care (01) ==
PROVIDERS: Emergency Provider Student in an Organized Health Care Education/Training Program; PCP Physician Assistant
DX: O21.0 Mild hyperemesis gravidarum (principal); Z3A.09 9 weeks gestation of pregnancy
CPT/HCPCS: 36415; 80053; 83690; 85025; 96361; 96374; 96375; 99284; J2405; J2765

== ENCOUNTER → 2023-05-16 11:31 | Outpatient (CLI) | payer OTHER, SELFPAY ==
[2023-05-16 14:52] LABS: Urine N gonorrhoeae NOT DETECTED
[2023-05-16 15:05] LABS: Urine Chlamydia NOT DETECTED
== END ==
PROVIDERS: Visit Provider Specialist
DX: Z34.82 Encounter for supervision of other normal pregnancy, second trimester (principal); Z3A.14 14 weeks gestation of pregnancy
CPT/HCPCS: 87086; 87491; 87591

== ENCOUNTER → 2023-05-16 12:19 | Outpatient (CLI) | payer OTHER, SELFPAY ==
[2023-05-16 13:27] LABS: Add Manual Diff / Slide Review NO; Basophils Absolute Auto 0 /uL (0-100); Basophils Percent Auto 0.4 % (0-2); Eosinophils Absolute Auto 100 /uL (0-450); Eosinophils Percent Auto 0.9 % (2-4); Hematocrit 33.5 % (36-46); Hemoglobin 11.8 g/dL (12.0-16.0); Lymphocytes Absolute Auto 800 /uL (1100-4500); Lymphocytes Percent Auto 9.8 % (25-40); Mean Corpuscular HGB Conc 35.2 % (30-36); Mean Corpuscular Hemoglobin 32.9 PG (26-34); Mean Corpuscular Volume 93.7 fL (80-100); Monocytes Absolute Auto 300 /uL (0-900); Monocytes Percent Auto 3.2 % (3-14); Neutrophils Absolute Auto 6900 /uL (1500-7000); Neutrophils Percent Auto 85.7 % (50-75); Platelet Count 254 X10^3/uL (150-400); Red Blood Cell Count 3.58 X10^6/uL (4.0-5.2); Red Cell Distribution Width 13.4 % (11.6-14.8)
[2023-05-17 07:07] LABS: RPR Screen Non Reactive (Non Reactive)
[2023-05-17 13:40] LABS: Varicella IgG Antibody 938 index (Immune >165)
[2023-05-17 17:50] LABS: Hepatitis B Surface Antigen NEGATIVE s/c (NEGATIVE); Rubella Antibody IgG 12.3 IU/mL (>15)
[2023-05-17 18:03] LABS: HIV 1 & 2 Ab/Ag 4th Gen Combo NEGATIVE (NEGATIVE); Hep C Virus Ab w/Reflex Quant NEGATIVE s/c (NEGATIVE)
== END ==
PROVIDERS: Referring Provider Obstetrics & Gynecology; Visit Provider Obstetrics & Gynecology
DX: Z34.82 Encounter for supervision of other normal pregnancy, second trimester (principal); Z3A.14 14 weeks gestation of pregnancy
CPT/HCPCS: 36415; 80055; 86787; 86803; 86850; 86900; 86901; 87086; 87389; 87491; 87591

== ENCOUNTER → 2023-06-20 16:18 | Outpatient (CLI) | payer OTHER, SELFPAY ==
--- NOTE | 2023-06-20 16:21 | DI.US.S_ITS ---
PROCEDURE: US OB >= 14 WEEKS FETUS INDICATIONS: 20 WEEK ANATOMY OUTSIDE/PRIOR DATING DATA: Last menstrual period (LMP): 02/01/2023 LMP-based estimated date of delivery (RUBIA): 11/08/2023. First dating scan (date and location): 03/27/2023. Estimated date of delivery (RUBIA) from first dating scan: 11/07/2023. TECHNIQUE: Real-time scanning was performed of the fetus, with image documentation and biometric measurements. COMPARISON: [facility], US, OB >= 14 WEEKS FETUS, 06/15/2023, 14:22. FINDINGS: General: A single living intrauterine gestation is present. Presentation: Transverse. Placenta: Placental position is anterior , without previa. Amniotic fluid index: 13.0 cm, normal range is 5-24 cm. Single deepest vertical pocket is 3.9 cm. heart rate: 160 beats per minute. Maternal cervical canal: 4.0 cm long. Normal lower limit is 2.5 cm. biometrics: Biparietal diameter: 20 weeks Head circumference: 20 weeks Abdominal circumference: 20 weeks 2 days Femur length: 20 weeks 1 day Clinically estimated gestational age: 19 weeks 6 days Composite gestational age from present scan: 20 weeks 1 day Estimated weight and percentile: 339 g; 66 percentile Anatomic survey: Neuro: Ventricles are non-dilated at less than 10 mm. Cisterna magna is normal at 3-11 mm. Cerebellum is normal in size and morphology. Nuchal skin fold: Normal at less than 6 mm between 14-21 weeks gestational age. Face: Nose and lips, facial profile are normal. Spine: No evidence for spina bifida. Heart: 4-chambered heart is present, with normal ventricular outflow tracts. Diaphragm: Diaphragm is intact. Stomach: Left-sided stomach is present. Kidneys: No hydronephrosis. Normal is less than 5 mm in 2nd trimester, less than 7 mm in 3rd trimester. Cord: 3-vessel cord has orthotopic insertion. Bladder: Normal in size. Extremities: All 4 extremities identified. IMPRESSION: 1. Single living IUP redemonstrated and interval growth is normal. 2. Normal anatomic survey. We strive to produce accurate, complete, and clear reports of imaging services. To assist us in improving patient care, this report was composed using standard report templates and voice recognition software. Therefore, it may contain abnormal punctuation, insertions and/or omissions. Occasional wrong-word or sound-alike substitutions may occur. Though we review the report and make efforts to correct it, we do recommend that the report be read carefully in proper context to recognize any text inaccuracies. Dictated by: Mykel MENDOZA Interpreted: Katharine Cortez MD on 06/20/2023 at 20:32 Approved by: Katharine Cortez M.D. on 06/21/2023 at 10:22
== END ==
PROVIDERS: Referring Provider Specialist; Visit Provider Specialist
DX: Z34.82 Encounter for supervision of other normal pregnancy, second trimester (principal); Z3A.20 20 weeks gestation of pregnancy
CPT/HCPCS: 76811

== ENCOUNTER → 2023-07-26 11:26 | Outpatient (CLI) | payer OTHER, SELFPAY ==
[2023-07-26 13:02] LABS: Hematocrit 30.1 % (36-46); Hemoglobin 10.5 g/dL (12.0-16.0)
[2023-07-26 13:42] LABS: GTT (PREG) 1 Hour PP 50gm Dose 153 mg/dL (76-139)
== END ==
PROVIDERS: Referring Provider Obstetrics & Gynecology; Visit Provider Obstetrics & Gynecology
DX: Z34.82 Encounter for supervision of other normal pregnancy, second trimester (principal); Z3A.25 25 weeks gestation of pregnancy
CPT/HCPCS: 82950; 85014; 85018

== ENCOUNTER → 2023-08-03 07:20 | Outpatient (CLI) | payer OTHER, SELFPAY ==
[2023-08-03 09:13] LABS: Glucose Fasting Gestational 88 mg/dL (76-95)
[2023-08-03 10:53] LABS: Glucose 2 Hour Gest 98 mg/dL (76-155)
[2023-08-03 10:55] LABS: Glucose 1 Hour Gest 135 mg/dL (76-180)
[2023-08-03 11:12] LABS: Glucose Tol Interp,Gestational INTERPRETATION
[2023-08-03 11:52] LABS: Glucose 3 Hour Gest 77 mg/dL (76-140)
== END ==
PROVIDERS: Referring Provider Obstetrics & Gynecology; Visit Provider Obstetrics & Gynecology
DX: O99.810 Abnormal glucose complicating pregnancy (principal); Z3A.00 Weeks of gestation of pregnancy not specified
CPT/HCPCS: 36415; 82951; 82952